=== PATIENT | female | born 1990 | race Caucasian/White ===

== ENCOUNTER 2022-09-08 11:00 | Outpatient (RCR) | payer OTHER, SELFPAY ==
--- NOTE | 2022-06-18 10:56 | PTOPEVAL1 ---
Assessment and note entered by Deisi Donato DPT Evaluation Information Assessment Status Evaluation Subjective Information Pt reports a diagnosis of a brain tumor and has had partial focal seizures as a result of either radiation or the tumor itself. Diagnosed with cancer in January 2022, had surgery on March 26 and is currently undergoing radiation treatments. It is in the motor cortex. More difficulty with using the left side of her body. Has gone through a rehab center but had trouble with scheduling. Reports she was having a lot of trouble walking a few weeks ago but it has improved. Thinks her balance has been affected a little, no falls. Has recently started doing stairs at home. Pt lives with and has mom who can come help as needed. Pt is not driving right now due to seizures. Pt has not been doing her normal cooking and cleaning but has been able to start with laundry. Can dress herself but reports difficulty with her left hand and just started taking a shower by herself again. 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 No pain affecting her LE. Reported Pain Level Pain Score 0: Self Report Assessment PT Clinical Summary The patient is presenting to skilled therapy with a diagnosis of a brain tumor and seizures affecting her L side. She presents with decreased lower extremity strength L>R which is contributing to difficulty performing her typical ADL's at home like cooking and cleaning. She will benefit from therapy to address her impairments and safely improve function at home. Plan of Care Interventions Gait Training,Manual Therapy,Neuro Re-education, Patient/Caregiver Education,Therapeutic Activities, Therapeutic Exercise,Self-Care/Home Management PT Services Indicated Yes Treatment Frequency and 1-2 times a week for 4 weeks Duration These treatments will address the objective and functional deficits as defined above. The patient will be advanced safely and appropriately in order for the patient to progress towards his/her prior level of function. Additional exercises will be introduced and as well as a comprehensive home exercise program upon discharge, if needed, ?to ensure carryover of functional gains achieved in the clinic. This treatment plan has been reviewed and agreement upon by the patient.
--- NOTE | 2022-06-18 11:54 | OTOPEVAL1 ---
Assessment and note entered by Chino Ríos, OTR/Negrito, CHT Evaluation Information Assessment Status Evaluation Subjective Information Patient was diagnosed with brain cancer in January 2022. She is s/p brain surgery Mar 25 2022, reports she had no movement in left UE for about a week following, slowly came back. Then she has seizures May 29, 2022 - left arm motion decreased again; reports weakness, clumsiness, and numbness. Reports she can only carry items that are about 8 oz or less. Has been slowly able to use her hand for more tasks, zippers and tying shoes. Mom has to retie shoes because they were too loose. 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 Does a lot of computer work, typing, [employer] programs, managing the schedule, etc. Reported Pain Level Pain Score 0: Self Report Assessment OT Clinical Summary Patient referred to outpatient OT with decreased left UE use following brain tumor resection and seizures. She presents with gross weakness and limited functional coordination. Strength is worse distally than proximally. She is able to complete the 9-hole peg assessment, however, it takes her 135 seconds to complete (norm <30 sec). She will benefit from skilled OT for HEP instruction and progression, functional therapeutic exercise, and functional coordination activities to facilitate optimal funcitonal use of the left UE. Plan of Care Interventions Therapeutic Exercise,Neuro Re-education, Therapeutic Activities OT Services Indicated Yes Treatment Frequency and 2x/week for 4 weeks Duration These treatments will address the objective and functional deficits as defined above. The patient will be advanced safely and appropriately in order for the patient to progress towards his/her prior level of function. Additional exercises will be introduced and as well as a comprehensive home exercise program upon discharge, if needed, ?to ensure carryover of functional gains achieved in the clinic. This treatment plan has been reviewed and agreement upon by the patient.
--- NOTE | 2022-07-16 10:52 | OTOPPROG ---
Assessment and note entered by Chino Ríos, EVERTON/Negrito, CHT Evaluation Information Assessment Status Progress Subjective Information Patient was diagnosed with brain cancer in January 2022. She is s/p brain surgery Mar 25 2022 , reports she had no movement in left UE for about a week following, slowly came back. Then she has seizures May 29, 2022 - left arm motion decreased again; reports weakness, clumsiness, and numbness. She finished her radiation treatments last week. She reports improved strength and coordination in the left hand. Reports she is able to pull up her pants better with the left hand. She is able to lift and carry more items with the left hand. Reports she has not tried to type yet with the left hand. She is now trying to use her left hand for everyday tasks such as opening doors, holding onto the railing when going up/down stairs, grabbing items out of the fridge. Gross strength of the left UE is progressing. She continues to have deficits with functional coordination, gross and fine. Assessment OT Clinical Summary Patient referred to outpatient OT with decreased left UE use following brain tumor resection and seizures. She has been participating in outpatient OT x4 weeks with the focus on improving gross strength and functional coordination. Patient is making progress with strength/coordination which is carrying over into more left UE use during daily tasks. She continues to have some residual deficits which will benefit from continued treatment. Continued skilled OT indicated for HEP instruction and progression, functional therapeutic exercise, and functional coordination activities to facilitate optimal functional use of the left UE. Plan of Care Interventions Therapeutic Exercise,Neuro Re-education, Therapeutic Activities OT Services Indicated Yes Treatment Frequency and 2x/week for 4 weeks Duration These treatments will address the objective and functional deficits as defined above. The patient will be advanced safely and appropriately in order for the patient to progress towards his/her prior level of function. Additional exercises will be introduced and as well as a comprehensive home exercise program upon discharge, if needed, ?to ensure carryover of functional gains achieved in the clinic. This treatment plan has
--- NOTE | 2022-07-16 11:27 | PTOPDC ---
Assessment and note entered by Deisi Donato DPT Evaluation Information Assessment Status Discharge Subjective Information Pt reports she has been feeling good PT la. Has been able to do stairs at work. 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 States her legs feel strong and she isn't really having balance issues. No falls. Reported Pain Level Pain Score 0: Self Report Pain Score 0: Self Report Assessment PT Clinical Summary The patient has made excellent progress in physical therapy. She demonstrates improved and equal LE strength and improved walking speed on the 2 minute walk test. 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 Due to her progress, plan to discharge from physical therapy at this time. She has been educated to continue HEP and follow up with MD and/or PT as needed. Plan of Care PT Services Indicated No
--- NOTE | 2022-08-10 11:12 | OTOPEVAL1 ---
Assessment and note entered by Chino Ríos, EVERTON/Negrito, CHT Evaluation Information Assessment Status Progress Subjective Information Patient was diagnosed with brain cancer in January 2022. She is s/p brain surgery Mar 25 2022 , reports she had no movement in left UE for about a week following, slowly came back. Then she has seizures May 29, 2022 - left arm motion decreased again; reports weakness, clumsiness, and numbness. She reports improved strength and coordination in the left hand and arm. She states she is able to lift and carry more items with the left hand. Reports she's not dropping items with the left. Gross strength of the left UE is progressing and is near functional limits. She continues to have deficits with functional coordination, which limits her fine motor and gross motor tasks/ADLs. Reported Pain Level Pain Score 2: Self Report Assessment OT Clinical Summary Patient referred to outpatient OT with decreased left UE use following brain tumor resection and seizures. She has been participating in outpatient OT x8 weeks with the focus on improving gross strength and functional coordination. Patient is making progress with strength/coordination which is carrying over into more left UE use during daily tasks. She continues to have some residual deficits which will benefit from continued treatment. Continued skilled OT indicated for HEP instruction and progression, functional therapeutic exercise, and functional coordination activities to facilitate optimal functional use of the left UE. Plan of Care Interventions Therapeutic Exercise,Neuro Re-education, Therapeutic Activities OT Services Indicated Yes Treatment Frequency and 2x/week for 4 weeks Duration These treatments will address the objective and functional deficits as defined above. The patient will be advanced safely and appropriately in order for the patient to progress towards his/her prior level of function. Additional exercises will be introduced and as well as a comprehensive home exercise program upon discharge, if needed, ?to ensure carryover of functional gains achieved in the clinic. This treatment plan has been reviewed and agreement upon by the patient.
--- NOTE | 2022-09-08 11:36 | OTOPDC ---
Assessment and note entered by Chino Ríos, OTR/Negrito, CHT Evaluation Information Assessment Status Discharge Subjective Information Maggi is reporting improved functional use of the left UE in the past month. She reports improved ability to reach and grasp items. She presents today with her mom and they report that the last month has been rough for Maggi. They state she has been very tired and sleeping more than usual. Her meds have been adjusted recently and she reports she has been feeling a little better and doing more. She states she was having a hard time sticking to her home exercises due to feeling so tired all the time. Gross strength of the left shoulder and elbow is WFL. Left contract writer strength is plateauing at about 30 lbs. We have seen a 10 lb decrease since her last assessment a month ago. Pinch strengths have remained unchanged. Fine motor coordination, as measured by the 9-hole peg test, has remained unchanged and continues to be severely impaired ( 145 seconds). Reported Pain Level Pain Score 0: Self Report Assessment OT Clinical Summary Patient referred to outpatient OT with decreased left UE use following brain tumor resection and seizures. She has been participating in outpatient OT x12 weeks with the focus on improving gross strength and functional coordination. Gross strength has made a good return. She continues to have coordination deficits and tremors which she attributes to the seizure medication. Measurements today demonstrate a progress plateau with hand strength and coordination. Discussed at length with the patient and her mom about all of the home exercises she has been issued and that getting on a regular routine with those moving forward is the best plan. They are in agreement today with discharging with [facility]. Plan of Care OT Services Indicated No
== END 2022-09-08 11:39 | disposition home or self-care (01) ==
LOC: ANHOT 11:00
DX: G40.901 Epilepsy, unspecified, not intractable, with status epilepticus (principal); C71.9 Malignant neoplasm of brain, unspecified
CPT/HCPCS: 97110; 97112; 97116; 97161; 97166; 97530

== ENCOUNTER 2023-01-26 11:00 | Outpatient (RCR) | payer OTHER, SELFPAY ==
--- NOTE | 2022-12-15 17:03 | STOPEVAL1 ---
Assessment and note entered by Sivan Jones, SOCIAL WORK MANAGER Evaluation Information Assessment Status Evaluation Diagnosis Hx Craniotomy, seizure, medicines for seizures and sleep disorder Onset 03/2021 Subjective Information The patient reports that she is a little slow cognitively and some focusing problems. Occasionally has trouble thinking of the right word. When asked what she wanted to work on, patient reported she is concerned about focus and paying attention. Reported Pain Level Pain Score 0: Self Report Assessment ST Clinical Summary COGNITIVE EVALUATION This patient was seen for a Cognitive Evaluation at the request of her physician. Patient reports a history of brain tumor with surgical removal/ craniotomy and a history of seizures of unsure cause, according to patient and mother, who accompanied her to this visit. Patient reports she is tired frequently possibly due to medication and possibly also due to trouble sleeping at night. 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 Mother stated patient was sent home with a list of duties in hopes that Speech Therapy could help patient strategies the most efficient way to complete these duties; as an aside, patient recalled the list but not that she brought the list home and did not remember to bring it today. Patient scored well in several areas including temporal orientation, recent memory, and recall of general information however she exhibited moderate difficulties in the areas of immediate memory, especially for more lengthy and complex information, and in the area of auditory processing and retention of complex yes/no questions. Patient will be seen once weekly for six weeks to address strategies to facilitate immediate memory and to address attention to detail for complex questions. Additionally therapy will focus on instructing the patient in the use of strategies to assist with being able to successfully complete work tasks related to communication in order to maintain her job. Thank you for this referral. Plan of Care Interventions Treatment for Cognitive F ST Services Indicated Yes Treatment Frequency and 1x week/6 weeks Duration These treatments will address the objective and functional deficits as defined above. The patient will be advanced safely and appropriately in order for the patient to progress towards his/her prior level of function. Additional exercises will be introduced and as well as a comprehensive home exercise program upon discharge, if needed, ?to ensure carryover of functional gains achieved in the clinic. This treatment plan has been reviewed and agreement upon by the patient.
[2023-01-12 11:00] VITALS: O2SAT 66
--- NOTE | 2023-01-27 16:19 | STOPDC ---
Assessment and note entered by Sivan Jones, TIRE CORD WEAVER Reported Pain Level Pain Score 0: Self Report Assessment ST Clinical Summary Patient was seen for an initial Speech Therapy evaluation on 12/15 and she was seen for six additional visits. Speech Therapy was initiated in order to address a variety of tasks and skills that patient was concerned she may have difficulty resuming upon returning to work. She was concerned about her focus and attention, and also random word-finding skills. She was presented with memory strategies and when and how to use them, and then a variety of tasks to address focus and attention to detail, shifting and divided attention, word-finding, deductive reasoning and functional math skills. Patient essentially achieved all goals. Of note, she was given tasks on paper to complete at home in between sessions and each week, she admitted to completing these tasks just prior to coming to Speech Therapy sessions. At the same time, she stated that if she did not have the appointment to return, she most likely would not have completed them and she appreciated having the goal to return. When patient was asked if she thinks Speech Therapy has been helpful, she reported that she feels that changing her seizure medication has significantly contributed to her improvement but then she stated that she also feels her memory and word-finding have improved due to being addressed in Speech Therapy sessions. Today patient's word-finding and attention/memory homework was reviewed and patient performed well in all areas with random issues noted. Patient tended to attribute the difficulty or unknown response to not being something she would have known prior to her tumor. She also stated that she has always had difficulty performing functional math tasks even as a child and this remains difficult (i.e. doing math for time in her head as opposed to visually on paper). Patient is being discharged this date with goals essentially achieved, not requiring additional skilled Speech Therapy and home program established. Patient was provided with a stack of written materials to address word-finding, memory, thought processing, and functional math. Plan of Care ST Services Indicated No
== END 2023-02-01 07:16 | disposition home or self-care (01) ==
LOC: ANHST 11:00
DX: R47.89 Other speech disturbances (principal); G40.909 Epilepsy, unspecified, not intractable, without status epilepticus; Z98.890 Other specified postprocedural states; G47.9 Sleep disorder, unspecified
CPT/HCPCS: 92507; 92523